=== PATIENT | male | born 1965 | race American Indian/Alaskan Native ===

== ENCOUNTER 2016-11-14 23:01 | Emergency (ER) | payer MEDICAID ==
--- NOTE | 2016-11-14 23:19 | Emergency Department Report ---
Chief Complaint: Abdominal Pain Stated Complaint: KIDNEY/HEAD PAIN Time Seen by Provider: 11/14/16 23:14 - HPI History of Present Illness: Patient is a 51-year-old male who presents to the ED first asking for his who is not admitted in this hospital but was a prior patient here. Patient after about 10 minutes then signed in to be seen. Patient states he is here for the right sided flank pain that has been going on for 1 year. patient states pain has been going on for about a year patient admits positive dysuria when prompted questions patient keeps answering I think so I think so. Patient is not really direct about answering questions When asked about medications patient states he does take medications every 3 days and he gets the medication every 3 days patient states he does not know why he second medication for. She denies fevers/chills/nausea/vomiting/abdominal pain/chest pain/ - ROS Review of Systems: As noted in HPI - Exam Vital Signs: Vital Signs 11/14/16 23:06 Temperature 98 F Pulse Rate 72 Respiratory 18 Rate Blood Pressure 121/75 O2 Sat by Pulse 100 Oximetry Physical Exam: GENERAL: Alert and oriented x3, no apparent distress, Normal Gait, atraumatic. HEAD: Head is normocephalic and a-traumatic. NECK: Supple. Non edematous, No carotid bruits. No lymphadenopathy or thyromegaly. LUNGS: Symetrical with respiration, No wheezing, no rales or crackles, CTAB. HEART: S1, S2 present, regular rate and rhythm without murmur, no rubs, no gallops. NEUROLOGIC: No focal Deficit, Cranial nerves II through XII are grossly intact. No loss of sensation, PSYCHIATRIC: Mood is congruent with affect, denies suicidal or homicidal ideations. SKIN: Warm and dry, No lesions, No ulceration or induration present. MSE screening note: Focused history and physical exam performed. Due to findings the following was ordered: ED Medical Decision Making - Medical Decision Making Mental health protocol ordered. Patient to be evaluated by ED physician. ED Disposition for MSE Condition: Stable
[2016-11-15 00:02] LABS: Basophils % (Auto) 0.7 % (0.0-1.8); Eosinophils % (Auto) 1.2 % (0.0-4.3); Hematocrit 40.8 % (35.5-45.6); Hemoglobin 13.6 gm/dl (11.8-15.2); Mean Corpuscular HGB Conc 33 % (32-34); Mean Corpuscular Hemoglobin 30 pg (28-32); Mean Corpuscular Volume 91 fl (84-94); Platelet Count 237 K/mm3 (140-440); Red Blood Count 4.48 M/mm3 (3.65-5.03); Red Cell Distribution Width 14.2 % (13.2-15.2); White Blood Count 5.7 K/mm3 (4.5-11.0)
[2016-11-15 00:09] LABS: BUN/Creatinine Ratio 15.55; Blood Urea Nitrogen 14 mg/dL (9-20); Calcium 9.1 mg/dL (8.4-10.2); Carbon Dioxide 25 mmol/L (22-30); Chloride 100.9 mmol/L (98-107); Glucose 106 mg/dL (75-100); Sodium 139 mmol/L (137-145)
[2016-11-15 00:11] LABS: Anion Gap 17 mmol/L
[2016-11-15 01:13] LABS: Urine Drugs of Abuse Note Disclamer
[2016-11-15 01:33] LABS: Bilirubin,Urine NEG (Negative); Blood,Urine SM (Negative); Ketones,Urine NEG (Negative); Leukocyte Esterase,Urine NEG (Negative); Nitrite,Urine NEG (Negative); Protein,Urine <15 mg/dL mg/dL (Negative); Urobilinogen,Urine < 2.0 mg/dL (<2.0); WBC,Urine < 1.0 /HPF (0.0-6.0)
--- NOTE | 2016-11-15 11:05 | Emergency Department Report ---
ED General Adult HPI - General Chief complaint: Abdominal Pain Stated complaint: KIDNEY/HEAD PAIN Time Seen by Provider: 11/15/16 08:49 Source: patient, RN notes reviewed, old records reviewed Mode of arrival: Ambulatory Limitations: No Limitations - History of Present Illness Initial comments: This is a 51-year-old male, previously unknown to me. Has a past medical history of bipolar/schizophrenia. Patient presents to the ER complaining of head pain/injury. He reports feeling a soft spot in the occipital region of his scalp, cannot tell me how long it has been therefore, but states "it has been there for a minute." He has complains of right-sided abdominal discomfort, which has been present for over a year. He cannot describe exacerbating or relieving factors. There is no vomiting, chest pain, shortness of breath, irritative or obstructive urinary symptoms. He denies homicidality or suicidality, he denies hallucinations. He reports that he initially checked in to visit up on an ex- , who is apparently a patient here previously. -: Gradual Location: head, abdomen Consistency: intermittent Improves with: none Worsens with: none Associated Symptoms: denies: chest pain, cough, diaphoresis, fever/chills, loss of appetite, malaise, nausea/vomiting, rash, shortness of breath, syncope, weakness - Related Data Previous Rx's Medication Instructions Recorded Last Taken Type ALBUTEROL Inhaler [ProAir HFA 1 puff IH Q4H #1 inha 03/13/16 Unknown Rx Inhaler] Sulfamethoxazole/Trimethoprim 1 each PO BID #10 tablet 03/13/16 Unknown Rx [Bactrim DS TAB] Allergies Allergy/AdvReac Type Severity Reaction Status Date / Time Penicillins Allergy Rash Verified 07/10/15 11:56 ED Review of Systems ROS: Stated complaint: KIDNEY/HEAD PAIN Other details as noted in HPI Constitutional: denies: fever Eyes: denies: eye discharge ENT: denies: epistaxis Respiratory: denies: cough Cardiovascular: denies: chest pain Gastrointestinal: abdominal pain Genitourinary: denies: testicular pain Musculoskeletal: denies: joint swelling Neurological: headache Psychiatric: denies: homicidal thoughts, suicidal thoughts ED Past Medical Hx - Past Medical History Previous Medical History?: Yes Hx Psychiatric Treatment: Yes (bi-polar/schizophrenia) Hx Asthma: Yes Additional medical history: Prostate issues. head injury one year ago. - Surgical History Past Surgical History?: Yes Additional Surgical History: nose surgery in 1983 - Social History Smoking Status: Current Every Day Smoker Substance Use Type: None - Medications Home Medications: Home Medications Medication Instructions Recorded Confirmed Last Taken Type ALBUTEROL Inhaler [ProAir HFA 1 puff IH Q4H #1 inha 03/13/16 Unknown Rx Inhaler] Sulfamethoxazole/Trimethoprim 1 each PO BID #10 tablet 03/13/16 Unknown Rx [Bactrim DS TAB] ED Physical Exam - General Limitations: No Limitations General appearance: alert, in no apparent distress - Head Head exam: Present: atraumatic, normocephalic - Eye Eye exam: Present: normal appearance, EOMI. Absent: nystagmus - ENT ENT exam: Present: normal exam, mucous membranes dry, mucous membranes moist, normal external ear exam - Neck Neck exam: Present: normal inspection, full ROM. Absent: tenderness, meningismus - Respiratory Respiratory exam: Present: normal lung sounds bilaterally. Absent: respiratory distress, wheezes, rales, rhonchi, stridor, decreased breath sounds - Cardiovascular Cardiovascular Exam: Present: regular rate, normal rhythm, normal heart sounds. Absent: bradycardia, tachycardia, irregular rhythm, systolic murmur, diastolic murmur, rubs, gallop - GI/Abdominal GI/Abdominal exam: Present: soft, normal bowel sounds. Absent: distended, tenderness, guarding, rebound, rigid, pulsatile mass - Rectal Rectal exam: Present: deferred - Extremities Exam Extremities exam: Present: normal inspection, full ROM, normal capillary refill. Absent: tenderness, pedal edema, joint swelling, calf tenderness - Back Exam Back exam: Present: normal inspection, full ROM. Absent: tenderness, CVA tenderness (R), CVA tenderness (L), muscle spasm, paraspinal tenderness, vertebral tenderness - Neurological Exam Neurological exam: Present: alert, oriented X3, normal gait, other (Extraocular movements intact. Tongue midline. No facial droop. Facial sensation intact to light touch in the V1, V2, V3 distribution bilaterally. 5 and 5 strength in 4 extremities.. Sensation is intact to light touch in 4 extremities.). Absent : motor sensory deficit - Psychiatric Psychiatric exam: Present: flat affect. Absent: homicidal ideation, suicidal ideation - Skin Skin exam: Present: warm, dry, intact, normal color. Absent: rash ED Course Vital Signs 11/14/16 11/15/16 23:06 11:43 Temperature 98 F 97.1 F L Pulse Rate 72 86 Respiratory 18 16 Rate Blood Pressure 121/75 Blood Pressure 114/71 [Left] O2 Sat by Pulse 100 99 Oximetry - Reevaluation(s) Reevaluation #1: 11/15/16 11:08 Differential diagnosis: Nonspecific headache, renal colic, constipation, bizarre affect, mood disorder assessment and plan: 51-year-old male with nonspecific headache and abdominal pain. He cannot tell an exact duration of symptoms, but does indicate that they are chronic. He has a GCS of 15, with an NIH score of 0, he is alert to name, year, month, location. He is not homicidal or suicidal, he does not meet criteria for 1013, and he has appropriate immediate short-term recall. He suddenly does have a bizarre affect, but I do not believe that he requires an acute psychiatric consultation for this. His medical screening exam notes are reviewed and appreciated. To me, the patient denied dysuria, but did admit to some difficulty urinating. However he was clearly able to produce a urine sample. He can follow up with a primary care doctor for this. A noncontrast CT scan of the head, abdomen, pelvis have been performed and the results are pending. I highly doubt any emergent condition exists at this time. Reevaluation #2: 11/15/16 11:[address] scan of the head negative. Noncontrast CT scan of the abdomen and pelvis negative, with the exception of distended bladder. The appendix is normal. Patient is able to produce urine. His urinalysis is reviewed and appreciated. He can follow up with urology for this. He will be discharged. ED Medical Decision Making - Lab Data Result diagrams: 11/14/16 23:34 11/14/16 23:34 - Radiology Data Radiology results: report reviewed, image reviewed Noncontrast CT scan of the head negative. Noncontrast CT scan of the abdomen and pelvis negative, with the exception of distended bladder Critical care attestation.: If time is entered above; I have spent that time in minutes in the direct care of this critically ill patient, excluding procedure time. ED Disposition Clinical Impression: Distended bladder Disposition: DISCHARGED TO HOME OR SELFCARE Is pt being admited?: No Does the pt Need Aspirin: No Condition: Stable Additional Instructions: Continue current outpatient medications. Imaging studies in the ER demonstrated a distended bladder. Follow-up with the urology specialist within the next [address] Gallego is a local urology specialist. Follow up with the primary care doctor within the next [address] Duffy is a local primary care doctor. Return to the ER right away with fevers or chills, chest pain or shortness of breath, nausea or vomiting, inability to tolerate liquid feeds, homicidal or suicidal thoughts. Referrals: PRIMARY CAREMD [Primary Care Provider] - 3-5 Days YOLY DUFFY MD [Staff Physician] - 3-5 Days ENETA GALLEGO MD [Staff Physician] - 3-5 Days
--- NOTE | 2016-11-15 11:05 | Cat Scan Report ---
CT HEAD WITHOUT CONTRAST: HISTORY: Headache. Serial contiguous axial images were obtained through the cranium. Intravenous contrast material was not administered. The ventricles are normal in size and appearance. There is no mass effect or midline shift. No areas of abnormally increased or decreased attenuation are seen. No mass lesion is seen. The mastoid air cells and visualized portions of the sinuses are normal. IMPRESSION: Cranial CT scan within normal limits. No significant change since 07/10/15.
--- NOTE | 2016-11-15 11:06 | Cat Scan Report ---
CT OF THE ABDOMEN AND PELVIS WITHOUT CONTRAST HISTORY: Right abdominal pain. TECHNIQUE: Helical CT without contrast. Sagittal and coronal reformatted images. FINDINGS: Within the limits of a noncontrast exam, the abdominal and pelvic viscera are within normal limits. The liver, biliary system, pancreas, spleen, kidneys, and adrenal glands are unremarkable. The bowel loops are normal caliber and wall thickness. Normal appendix. The aorta is normal caliber. No ascites, bulky adenopathy or inflammatory changes. The bladder is moderately distended. No wall thickening or filling defect. The lung bases are clear. Normal heart size. No suspicious bony lesion. IMPRESSION: Distended bladder, otherwise, unremarkable noncontrast CT of the abdomen and pelvis.
[2016-11-15 11:43] VITALS: BP 114/71
== END 2016-11-15 11:44 | disposition home or self-care (01) ==
LOC: ED 23:01
DX: N32.89 Other specified disorders of bladder (principal); R51 Headache; J45.909 Unspecified asthma, uncomplicated; F31.9 Bipolar disorder, unspecified; F20.9 Schizophrenia, unspecified; F17.200 Nicotine dependence, unspecified, uncomplicated; Z88.0 Allergy status to penicillin
CPT/HCPCS: 36415; 70450; 74176; 80048; 80307; 81001; 85025; 99284; G0480; 80320

== ENCOUNTER 2016-11-30 13:54 | Emergency (ER) | payer SELFPAY | END 2016-11-30 13:55 | disposition left against medical advice (07) | LOC: ED 13:54 | DX: M54.5 Low back pain (principal); M25.559 Pain in unspecified hip; Z53.21 Procedure and treatment not carried out due to patient leaving prior to being seen by health care provider ==

== ENCOUNTER 2017-01-17 05:42 | Emergency (ER) | payer SELFPAY ==
[2017-01-17 05:57] VITALS: BP 121/71
[2017-01-17 07:41] LABS: Basophils % (Auto) 0.6 % (0.0-1.8); Eosinophils % (Auto) 1.1 % (0.0-4.3); Hematocrit 40.9 % (35.5-45.6); Hemoglobin 13.6 gm/dl (11.8-15.2); Mean Corpuscular HGB Conc 33 % (32-34); Mean Corpuscular Hemoglobin 30 pg (28-32); Mean Corpuscular Volume 90 fl (84-94); Platelet Count 212 K/mm3 (140-440); Red Blood Count 4.53 M/mm3 (3.65-5.03); Red Cell Distribution Width 13.6 % (13.2-15.2); White Blood Count 5.7 K/mm3 (4.5-11.0)
[2017-01-17 08:15] LABS: Anion Gap 19 mmol/L; Calcium 9.6 mg/dL (8.4-10.2); Carbon Dioxide 26 mmol/L (22-30); Chloride 103.6 mmol/L (98-107); Glucose 125 mg/dL (75-100); Sodium 145 mmol/L (137-145)
[2017-01-17 10:21] LABS: BUN/Creatinine Ratio 14.44; Blood Urea Nitrogen 13 mg/dL (9-20)
--- NOTE | 2017-01-20 06:52 | ED Elopement Review ---
ED Pt Elopement review - Results review Lab results: Laboratory Tests 01/17/17 01/17/17 06:10 06:10 WBC 5.7 RBC 4.53 Hgb 13.6 Hct 40.9 MCV 90 MCH 30 MCHC 33 RDW 13.6 Plt Count 212 Lymph % (Auto) 33.2 [place] % (Auto) 7.9 H Eos % (Auto) 1.1 Baso % (Auto) 0.6 Lymph # 1.9 [place] # 0.4 Eos # 0.1 Baso # 0.0 Seg Neutrophils % 57.2 Seg Neutrophils # 3.2 Carbon Dioxide 26 BUN 13 Creatinine 0.9 Estimated GFR > 60 BUN/Creatinine Ratio 14.44 Glucose 125 H Calcium 9.6 Troponin T < 0.010 - Call Back decision Pt Call Back Decision: No action required
== END 2017-01-17 06:30 | disposition left against medical advice (07) ==
LOC: ED 05:42
DX: R07.9 Chest pain, unspecified (principal); Z53.21 Procedure and treatment not carried out due to patient leaving prior to being seen by health care provider
CPT/HCPCS: 36415; 80048; 84484; 85025; 93005; 93010

== ENCOUNTER 2017-02-07 12:26 | Emergency (ER) | payer SELFPAY ==
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
[2017-02-07 13:27] LABS: INR 0.99 (0.87-1.13)
[2017-02-07 13:28] LABS: Partial Thromboplastin Time 30.7 Sec. (24.2-36.6)
[2017-02-07 13:33] LABS: Alanine Aminotransferase 31 units/L (7-56); Albumin/Globulin Ratio 1.4 %; Alkaline Phosphatase 109 units/L (35-129); Anion Gap 16 mmol/L; BUN/Creatinine Ratio 11.25; Bilirubin,Total 0.2 mg/dL (0.1-1.2); Blood Urea Nitrogen 9 mg/dL (9-20); Calcium 9.5 mg/dL (8.4-10.2); Carbon Dioxide 28 mmol/L (22-30); Chloride 102.1 mmol/L (98-107); Glucose 83 mg/dL (75-100); Potassium 4.4 mmol/L (3.6-5.0); Sodium 142 mmol/L (137-145); Total Protein 6.9 g/dL (6.3-8.2)
--- NOTE | 2017-02-07 13:56 | XRay Report ---
LUMBOSACRAL SPINE, 3 VIEWS: History: Back pain Findings: The vertebral bodies, disk spaces and posterior elements are intact. No compression deformity or malalignment. The SI joints are symmetric and unremarkable. Impression: 1. No evidence for acute injury to the lumbar spine.
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
--- NOTE | 2017-02-07 13:57 | XRay Report ---
RIGHT RIBS, 3 VIEWS: History: Right rib pain.. Routine views of the rib cage demonstrate normal mineralization with no significant contour abnormalities, fractures or destructive lesions. PA view of the chest demonstrates no underlying cardiopulmonary abnormalities, fluid or pneumothorax. IMPRESSION: Unremarkable right rib series.
[2017-02-07 13:59] LABS: Basophils % (Auto) 0.8 % (0.0-1.8); Eosinophils % (Auto) 0.8 % (0.0-4.3); Hematocrit 40.5 % (35.5-45.6); Hemoglobin 13.4 gm/dl (11.8-15.2); Mean Corpuscular HGB Conc 33 % (32-34); Mean Corpuscular Hemoglobin 30 pg (28-32); Mean Corpuscular Volume 91 fl (84-94); Platelet Count 266 K/mm3 (140-440); Red Blood Count 4.45 M/mm3 (3.65-5.03); Red Cell Distribution Width 14.1 % (13.2-15.2); White Blood Count 5.2 K/mm3 (4.5-11.0)
[2017-02-07] MEDS ORDERED: NACL ONE (17:53)
[2017-02-07] MEDS ORDERED: NACL 0.9% 1000 ML 1,000 ML IV ONE (17:54)
[2017-02-07] MEDS ORDERED: MORPHINE IV ONE (17:54)
[2017-02-07] MEDS ORDERED: ZOFRAN IV ONE (17:55)
[2017-02-07] MEDS ORDERED: MORPHINE ONE (18:09)
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
[2017-02-07 23:03] VITALS: BP 106/63
== END 2017-02-07 22:51 | disposition home or self-care (01) ==
LOC: ED 12:26
DX: E86.0 Dehydration (principal); R10.11 Right upper quadrant pain; M25.511 Pain in right shoulder; F31.9 Bipolar disorder, unspecified; F20.9 Schizophrenia, unspecified; J45.909 Unspecified asthma, uncomplicated; F17.200 Nicotine dependence, unspecified, uncomplicated; V49.9XXA Car occupant (driver) (passenger) injured in unspecified traffic accident, initial encounter; Y93.89 Activity, other specified; Y99.9 Unspecified external cause status; Y92.410 Unspecified street and highway as the place of occurrence of the external cause
CPT/HCPCS: 36415; 71100; 72100; 73030; 74177; 80053; 85025; 85610; 85730; 86850; 86900; 86901; 96361; 96374; 96375; 99285; G0480; J2270; J2405; J7030; Q9967; 80320

== ENCOUNTER 2017-04-14 07:36 | Emergency (ER) | payer MEDICAID ==
[2017-04-14 07:45] VITALS: BP 114/76
[2017-04-14] MEDS ORDERED: TORADOL IM ONE (09:25)
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
== END 2017-04-14 11:27 | disposition home or self-care (01) ==
LOC: ED 07:36
DX: S39.012S Strain of muscle, fascia and tendon of lower back, sequela (principal); F31.9 Bipolar disorder, unspecified; F20.9 Schizophrenia, unspecified; J45.909 Unspecified asthma, uncomplicated; Z87.891 Personal history of nicotine dependence; Y92.9 Unspecified place or not applicable
CPT/HCPCS: 99282; J1885